=== PATIENT | male | born 1970 | race Caucasian/White ===

== ENCOUNTER 2017-06-24 15:57 | Emergency (ER) | payer BC, OTHER ==
[~2017-06-24] VITALS: Ht 165.1 cm; Wt 93.4 kg
--- NOTE | 2017-06-24 17:55 | NUR ---
Patient discharged to home in stable conditon. Written and verbal after care instructions given. Patient verbalizes understanding of instructions.
[2017-06-24 17:59] VITALS: BP 141/89
== END 2017-06-24 17:55 | disposition home or self-care (01) ==
LOC: ER 15:58
DX: G56.21 Lesion of ulnar nerve, right upper limb (principal); E11.9 Type 2 diabetes mellitus without complications; Z79.4 Long term (current) use of insulin
CPT/HCPCS: 73080; 99284; A4663